=== PATIENT | female | born 1990 | race Caucasian/White ===

== ENCOUNTER 2021-01-12 04:47 | Inpatient (IN) | payer MEDICAID ==
[~2021-01-12] VITALS: Ht 172.7 cm; Wt 72.0 kg
[2021-01-12] MEDS ORDERED: SODIUM CHLORIDE 0.9% 1,000 ML IV ONE (05:45)
[2021-01-12 06:12] LABS: CHLORIDE 106 mEq/L (98-107)
[2021-01-12] MEDS ORDERED: LORAZEPAM 2MG/ML CPJ IV ONE (06:15)
[2021-01-12 06:17] LABS: ETHANOL BLOOD < 10 mg/dL
[2021-01-12 06:18] LABS: BASOPHILS % 0.5 % (0.0-2.0); EOSINOPHILS % 2.3 % (0.0-5.0); HEMATOCRIT. 44.1 % (36.0-48.0); HEMOGLOBIN. 15.3 g/dL (12.0-16.0); LYMPHOCYTES % 29.5 % (20.0-50.0); MEAN CORPUSCULAR HEMOGLOBIN 32.3 pg (28.0-32.0); MEAN CORPUSCULAR VOLUME 93.3 fL (81.0-99.0); MEAN PLATELET VOLUME 7.8 fl (7.4-10.4); NEUTROPHILS % 60.7 % (40.0-76.0); PLATELET 469 x1000/uL (130-400); RED BLOOD CELL COUNT 4.73 mill/uL (4.2-5.4); RED CELL DISTRIBUTION WIDTH 13.4 % (11.6-14.6)
[2021-01-12 08:01] LABS: CLARITY URINE CLEAR (CLEAR); COLOR URINE YELLOW (YELLOW); KETONES URINE NEGATIVE (NEGATIVE); LEUKOCYTE ESTERASE URINE NEGATIVE (NEGATIVE); NITRITE URINE NEGATIVE (NEGATIVE); OCCULT BLOOD URINE NEGATIVE (NEGATIVE); PROTEIN URINE NEGATIVE (NEGATIVE); SPECIFIC GRAVITY URINE 1.013 (1.005-1.030); UROBILINOGEN URINE 0.2 E.U./dL (0.2-1.0)
[2021-01-12 08:26] LABS: *BARBITURATES SCREEN URINE NEGATIVE (NEGATIVE); *BENZODIAZEPINES SCREEN URINE NEGATIVE (NEGATIVE); *COCAINE SCREEN URINE NEGATIVE (NEGATIVE); METHADONE URINE SCREEN NEGATIVE (NEGATIVE); OPIATES URINE SCREEN NEGATIVE (NEGATIVE); PHENCYCLIDINE URINE SCREEN NEGATIVE (NEGATIVE)
[2021-01-12 08:27] LABS: *AMPHETAMINES SCREEN URINE NEGATIVE (NEGATIVE); CANNABINOID URINE SCREEN NEGATIVE (NEGATIVE)
[2021-01-12] MEDS ORDERED: IPRATROPIUM/ALBUTEROL 0.5-3(2.5)MG/3ML NEB NEB PRN (09:45)
[2021-01-12] MEDS ORDERED: MAGNESIUM/ALUMINUM HYDROXIDE/SIMETHICONE 30ML UDC PO PRN (09:45)
[2021-01-12] MEDS ORDERED: DOCUSATE SODIUM 100MG CAPSULE PO PRN (09:45)
[2021-01-12] MEDS ORDERED: ACETAMINOPHEN 325MG TABLET PO PRN ×2 (09:45)
[2021-01-12] MEDS ORDERED: CLONIDINE 0.1MG TABLET PO PRN (09:45)
[2021-01-12] MEDS ORDERED: KETOROLAC 15MG/ML VIAL IV PRN (09:45)
[2021-01-12] MEDS ORDERED: ONDANSETRON HCL 4MG/2ML INJ IV PRN (09:45)
[2021-01-12] MEDS: SODIUM CHLORIDE 0.9% 1,000 ML IV SCH ×2 (10:52→20:14)
[2021-01-12] MEDS: PANTOPRAZOLE SODIUM 40 MG/VIAL IV SCH (10:52)
[2021-01-12 14:57] LABS: CREATINE KINASE 311 IU/L (26-192)
[2021-01-12 14:58] LABS: CREATINE KINASE MB FRACTION < 1.0 ng/mL (0.5-3.6)
[2021-01-12] MEDS ORDERED: POTASSIUM CHLORIDE 20MEQ TABLET SR PO SCH (23:15)
[2021-01-12 23:47] LABS: CREATINE KINASE 714 IU/L (26-192)
[2021-01-12 23:48] LABS: CREATINE KINASE MB FRACTION < 1.0 ng/mL (0.5-3.6)
[2021-01-13] MEDS ORDERED: KCL 20MEQ/100ML PREMIX 100 ML IV SCH
[2021-01-13] MEDS: SODIUM CHLORIDE 0.9% 1,000 ML IV SCH (07:00)
[2021-01-13] MEDS: PANTOPRAZOLE SODIUM 40 MG/VIAL IV SCH (11:44)
[2021-01-13 12:56] LABS: BASOPHILS % 0.4 % (0.0-2.0); EOSINOPHILS % 1.5 % (0.0-5.0); HEMATOCRIT. 39.8 % (36.0-48.0); HEMOGLOBIN. 13.2 g/dL (12.0-16.0); LYMPHOCYTES % 28.6 % (20.0-50.0); MEAN CORPUSCULAR VOLUME 93.7 fL (81.0-99.0); MEAN PLATELET VOLUME 7.3 fl (7.4-10.4); MONOCYTES % 12.3 % (2.0-8.0); NEUTROPHILS % 57.2 % (40.0-76.0); PLATELET 403 x1000/uL (130-400); RED BLOOD CELL COUNT 4.25 mill/uL (4.2-5.4); RED CELL DISTRIBUTION WIDTH 13.5 % (11.6-14.6)
[2021-01-13 13:03] LABS: CHLORIDE 108 mEq/L (98-107)
[2021-01-13 13:09] LABS: PHOSPHORUS 3.7 mg/dL (2.5-4.9)
[2021-01-13] MEDS ORDERED: SODIUM CHLORIDE 0.9% 1,000 ML IV ONE (21:30)
[2021-01-13 22:13] LABS: CREATINE KINASE 657 IU/L (26-192)
[2021-01-14] MEDS: SODIUM CHLORIDE 0.9% 1,000 ML IV SCH ×2 (02:00→11:44)
[2021-01-14] MEDS: PANTOPRAZOLE SODIUM 40 MG/VIAL IV SCH (09:00)
[2021-01-14] MEDS: TRAZODONE HCL 50MG TABLET PO SCH (21:40)
[2021-01-14] MEDS: RISPERIDONE 1MG TABLET PO SCH (21:40)
[2021-01-15] MEDS: PANTOPRAZOLE SODIUM 40 MG/VIAL IV SCH (09:00)
[2021-01-15] MEDS: RISPERIDONE 1MG TABLET PO SCH ×2 (11:54→22:05)
[2021-01-15] MEDS: TRAZODONE HCL 50MG TABLET PO SCH (21:05)
[2021-01-16] MEDS: RISPERIDONE 1MG TABLET PO SCH (09:00)
[2021-01-16 18:49] VITALS: BP 127/62
== END 2021-01-16 18:49 | disposition home or self-care (01) | DRG 817 ==
LOC: ER 04:47 → MICUSO 23:52
PROVIDERS: ADMIT Internal Medicine; ATTEND Internal Medicine
DX: T45.0X2A Poisoning by antiallergic and antiemetic drugs, intentional self-harm, initial encounter (principal); R45.851 Suicidal ideations; E87.6 Hypokalemia; F31.9 Bipolar disorder, unspecified; R94.31 Abnormal electrocardiogram [ECG] [EKG]; Z20.822 Contact with and (suspected) exposure to COVID-19; F41.9 Anxiety disorder, unspecified; Z79.899 Other long term (current) drug therapy; Y92.89 Other specified places as the place of occurrence of the external cause; Z91.51 Personal history of suicidal behavior; Z81.8 Family history of other mental and behavioral disorders
CPT/HCPCS: 36415; 80053; 80305; 80320; 81003; 82550; 82553; 83735; 84100; 84484; 85025; 93005; 93970; 99291; C9113; J2060; J3480; J7030; U0003; U0005; G0480